=== PATIENT | male | born 2000 | race Caucasian/White ===

== ENCOUNTER 2018-04-08 04:03 | Inpatient (IN) | payer BC ==
[~2018-04-08] VITALS: Ht 175.3 cm; Wt 58.7 kg
[2018-04-08 04:10] VITALS: Ht 175.3 cm; Wt 58.7 kg
[2018-04-08 07:10] LABS: BASOPHIL % 0.2 % (0-2); PLATELET COUNT 236 x10^3mcL (130-400)
[2018-04-08 07:30] LABS: CALCIUM 9.1 mg/dL (8.5-10.1); CARBON DIOXIDE 24.7 mmol/L (21-32); CHLORIDE SERUM 101 mmol/L (98-107); GFR1 > 60 mL/min; GLUCOSE SERUM 105 mg/dL (74-106); POTASSIUM SERUM 4.2 mmol/L (3.5-5.1); SODIUM SERUM 136 mmol/L (136-145)
[2018-04-08 07:35] LABS: ALBUMIN 4.4 g/dL (3.4-5.0); ALKALINE PHOSPHATASE 151 U/L (46-116); ALT/SGPT 23 U/L (16-63); AST/SGOT 21 U/L (15-37); BILIRUBIN TOTAL 1.1 mg/dL (0.20-1.00); TOTAL PROTEIN, SERUM 7.7 g/dL (6.4-8.2)
[2018-04-08] MEDS ORDERED: PROINH (08:14)
[2018-04-08 08:17] LABS: AMPHETAMINE QUAL UR NONE DETECTED (See below)
[2018-04-08 10:46] VITALS: BP 114/65
[2018-04-08 13:17] LABS: CHOLESTEROL/HDL RATIO 2.7
[2018-04-08 13:37] LABS: FREE T4 1.01 ng/dL (0.76-1.46); FREE THYROXINE INDEX 2.2 ug/dL (1.4-4.5); T4(THYROXINE) 5.7 ug/dL (4.7-13.3)
[2018-04-08 14:07] VITALS: BP 111/65
[2018-04-08 14:16] LABS: T3 TOTAL 1.18 ng/mL
[2018-04-08 17:55] VITALS: BP 109/64
[2018-04-08 20:27] VITALS: BP 114/59
[2018-04-09 05:24] VITALS: BP 106/51
[2018-04-09 09:00] VITALS: BP 97/51
[2018-04-09 10:06] VITALS: BP 104/57
[2018-04-09 13:25] VITALS: BP 104/57
[2018-04-09 18:00] VITALS: BP 108/57
[2018-04-09 20:52] VITALS: BP 102/54
[2018-04-10 06:21] VITALS: BP 106/69
[2018-04-10 07:12] LABS: BASOPHIL % 0.4 % (0-2); PLATELET COUNT 210 x10^3mcL (130-400); RED CELL DISTRIBUTION WIDTH 13.1 % (11.5-14.5)
[2018-04-10 07:19] LABS: CALCIUM 8.8 mg/dL (8.5-10.1); CHLORIDE SERUM 105 mmol/L (98-107); CREATININE SERUM 0.9 mg/dL (0.7-1.3); GFR1 > 60 mL/min; GLUCOSE SERUM 86 mg/dL (74-106); PHOSPHOROUS 5.3 mg/dL (2.5-4.9); POTASSIUM SERUM 3.7 mmol/L (3.5-5.1); SODIUM SERUM 142 mmol/L (136-145)
[2018-04-10 09:22] VITALS: BP 109/71
[2018-04-10 09:46] VITALS: BP 109/71
== END 2018-04-10 11:35 | disposition home or self-care (01) | DRG 201 ==
LOC: ED 04:03 → DU 08:21
PROVIDERS: Emergency Medicine; Family Medicine
DX: J98.2 Interstitial emphysema (principal); J45.909 Unspecified asthma, uncomplicated; F12.90 Cannabis use, unspecified, uncomplicated; Z72.89 Other problems related to lifestyle; Z71.6 Tobacco abuse counseling
CPT/HCPCS: 84439; J2930; J7613; Q0092